=== PATIENT | male | born 1955 | race Caucasian/White ===

== ENCOUNTER 2021-07-08 07:42 | Day surgery (SDC) | payer MEDICARE, MEDICAID ==
[~2021-07-08 07:42] MED LIST: propofoL 50 ML ONE
[2021-07-08] MEDS ORDERED: fentaNYL 100 MCG/2 ML SDV ONE (08:30)
[2021-07-08] MEDS ORDERED: Lactated Ringers 1,000 ML IV SCH ×2 (08:30→10:00)
--- NOTE | 2021-07-08 09:26 | PCM.PREANE ---
Preanesthetic Assessment - Procedure Proposed Procedure: Colonoscopy - Anesthesia/Transfusion/Family Hx Anesthesia History: Prior Anesthesia Without Reaction Family History of Anesthesia Reaction: No Transfusion History: Prior Transfusion Without Reaction - Review of Systems General: No Symptoms Pulmonary: Wheezing (Smokes 1.5 PPD, used to smoke 3 PPD. COPD, no O2, uses MDI daily) Cardiovascular: No Symptoms (HTN, HLD) Gastrointestinal: No Symptoms Neurological: No Symptoms (H?O seizures as a child, resolved) Other: Reports: Diabetes (DM on metformin and Jardiance), Anxiety - Physical Assessment NPO Status Date: 07/06/21 NPO Status Time: 20:00 Height: 5 ft 10 in Weight: 117.027 kg (Obesity) ASA Class: 3 Mental Status: Alert & Oriented x3 Airway Class: Mallampati = 2 Dentition: Reports: Broken Tooth/Teeth, Missing Tooth/Teeth (No dentures) Thyro-Mental Finger Breadths: 3 Mouth Opening Finger Breadths: 3 ROM/Head Extension: Full Lungs: Clear to Auscultation, Normal Respiratory Effort Cardiovascular: Regular Rate, Regular Rhythm - Lab Values: Laboratory Last Values SARS-CoV-2 RNA (ÓSCAR) NEGATIVE (NEGATIVE) 07/08/21 06:50 - Allergies Allergies/Adverse Reactions: Allergies Allergy/AdvReac Type Severity Reaction Status Date / Time strawberry Allergy Hives Verified 07/04/21 14:12 - Acknowledgements Anesthesia Type Planned: General Anesthesia Pt an Appropriate Candidate for the Planned Anesthesia: Yes Alternatives and Risks of Anesthesia Discussed w Pt/Guardian: Yes Pt/Guardian Understands and Agrees with Anesthesia Plan: Yes PreAnesthesia Questionnaire HEENT History: Reports: Other (See Below) Other HEENT History: wears glasses Cardiovascular History: Reports: High Cholesterol, Hypertension Respiratory History: Reports: COPD, Sleep Apnea, Other (See Below) Other Respiratory History: does not use CPAP, states was told once he had lung cancer then was told by another doctor that he did not have cancer, has smoked cigarettes since he was "5 years old" Gastrointestinal History: Reports: GERD Genitourinary History: Reports: BPH Musculoskeletal History: Reports: Arthritis, Fracture Other Musculoskeletal History: hx fx ribs and fingers Neurological History: Reports: Other (See Below) Other Neuro History: states he had a undiagnosed stroke in 2010, staes he had left sided weakness and slurred speech, states he did not go to the doctor Psychiatric History: Reports: Anxiety, Depression Endocrine/Metabolic History: Reports: Diabetes, Type II, Obesity/BMI 30+ Hematologic History: Reports: Blood Transfusion(s) Other Hematologic History: states had a transfusion as a infant Immunologic History: Reports: None Oncologic (Cancer) History: Reports: None Dermatologic History: Reports: None - Past Surgical History Head Surgeries/Procedures: Reports: None HEENT Surgical History: Reports: None Cardiovascular Surgical History: Reports: None Respiratory Surgical History: Reports: Lung Biopsies, Other (See Below) Other Respiratory Surgeries/Procedures: states has had a lung bx, and what he describes as a possible bronchoscopy GI Surgical History: Reports: Colonoscopy, EGD Male Surgical History: Reports: None Endocrine Surgical History: Reports: None Neurological Surgical History: Reports: None Musculoskeletal Surgical History: Reports: Other (See Below) Other Musculoskeletal Surgeries/Procedures:: hx knee surgery Oncologic Surgical History: Reports: None Dermatological Surgical History: Reports: None - SUBSTANCE USE Tobacco Use Status *Q: Current Every Day Tobacco User Tobacco Use Within Last Twelve Months: Cigarettes - HOME MEDS Home Medications: Home Meds Aspirin [Adult Aspirin Regimen] 81 mg PO DAILY 07/04/21 [History] ClonazePAM [KlonoPIN] 0.5 mg PO BID PRN 07/04/21 [History] Diclofenac Sodium 75 mg PO BID 07/04/21 [History] Empagliflozin [Jardiance] 25 mg PO DAILY 07/04/21 [History] Esomeprazole Magnesium [Nexium 24Hr] 10 mg PO DAILY 07/04/21 [History] Fluticasone Propion/Salmeterol [Fluticasone-Salmeterol 250-50] 1 puff INH BID PRN 07/04/21 [History] Glimepiride 2 mg PO DAILY 07/04/21 [History] Rosuvastatin Calcium 20 mg PO DAILY 07/04/21 [History] Semaglutide [Rybelsus] 3 mg PO DAILY 07/04/21 [History] Sertraline HCl 100 mg PO DAILY 07/04/21 [History] Tamsulosin HCl [Flomax] 0.4 mg PO BEDTIME 07/04/21 [History] amLODIPine Besylate [Amlodipine Besylate] 10 mg PO DAILY 07/04/21 [History] lisinopriL [Lisinopril] 10 mg PO DAILY 07/04/21 [History] metFORMIN HCl [Metformin HCl] 1,000 mg PO BID 07/04/21 [History] traZODone HCl [Trazodone HCl] 100 mg PO BEDTIME PRN 07/04/21 [History] - CURRENT (IN HOUSE) MEDS Current Meds: Current Medications Lactated Ringer's (Ringers, Lactated) 1,000 mls @ 125 mls/hr IV ASDIRECTED JOSE L Discontinued Medications Fentanyl (Fentanyl 100 Mcg/2 Ml Sdv) Confirm Administered Dose 100 mcg .ROUTE .STK-MED ONE Stop: 07/08/21 08:31 Propofol (Diprivan 50 Ml) Confirm Administered Dose 50 mls @ as directed .ROUTE .STK-MED ONE Stop: 07/08/21 07:21 Lidocaine HCl (Lidocaine 1% 5 Ml Sdv) Confirm Administered Dose 5 ml .ROUTE .STK-MED ONE Stop: 07/08/21 08:31
--- NOTE | 2021-07-08 10:00 | PCM.OPNOTE ---
- General Post-Op/Procedure Note Date of Surgery/Procedure: 07/08/21 Operative Procedure(s): Colonoscopy Pre Op Diagnosis: Personal history of colon polyps Post-Op Diagnosis: Sigmoid diverticulosis Anesthesia Technique: MAC (ASA III) Primary Surgeon: Darren Wilde Condition: Good Free Text/Narrative:: DICTATION [id number] CPT CODE 44961
--- NOTE | 2021-07-08 10:08 | PCM.POSTAN ---
POST ANESTHESIA ASSESSMENT - MENTAL STATUS Mental Status: Alert, Oriented - VITAL SIGNS Vital Signs: Last Vital Signs Temp 98.1 F 07/08/21 08:55 Pulse 71 07/08/21 10:07 Resp 16 07/08/21 10:07 BP 104/61 07/08/21 10:07 Pulse Ox 94 L 07/08/21 10:07 - RESPIRATORY Respiratory Status: Respiratory Rate WNL, Airway Patent, O2 Saturation Stable - CARDIOVASCULAR CV Status: Pulse Rate WNL, Blood Pressure Stable - GASTROINTESTINAL GI Status: No Symptoms - PAIN Pain Score: 0 - POST OP HYDRATION Hydration Status: Adequate & Stable
--- NOTE | 2021-07-08 10:10 | PCM48HPAN ---
Post Anesthesia Note - EVALUATION WITHIN 48HRS OF ANESTHETIC Vital Signs in Normal Range: Yes Patient Participated in Evaluation: Yes Respiratory Function Stable: Yes Airway Patent: Yes Cardiovascular Function Stable: Yes Hydration Status Stable: Yes Pain Control Satisfactory: Yes Nausea and Vomiting Control Satisfactory: Yes Mental Status Recovered: Yes Vital Signs: Last Vital Signs Temp 98.1 F 07/08/21 08:55 Pulse 71 07/08/21 10:07 Resp 16 07/08/21 10:07 BP 104/61 07/08/21 10:07 Pulse Ox 94 L 07/08/21 10:07 - COMMENTS/OBSERVATIONS Free Text/Narrative:: Pt doing well post-op. VSS. No apparent anesthetic complications. Dr. Pablo Hernandez
--- NOTE | 2021-07-08 14:58 | OR ---
SURGEON: Darren Wilde M.D. DATE OF PROCEDURE: 07/08/2021 PROCEDURE PERFORMED: Colonoscopy. PRIMARY SURGEON: Darren Wilde MD. ANESTHESIA: MAC. ASA CLASSIFICATION: 3. PREOPERATIVE DIAGNOSIS: Personal history of colon polyps. POSTOPERATIVE DIAGNOSIS: Sigmoid diverticulosis. DESCRIPTION OF PROCEDURE: The patient was taken to the endoscopy room and positioned on the endoscopy table in the left lateral decubitus position. Time-out was called for appropriate identification of the patient and procedure. Monitored anesthesia care was provided. The colonoscope was inserted into the rectum and advanced with minimal difficulty to the cecum. The cecum was identified by internal landmarks and external pressure. The appendiceal orifice and ileocecal valve were both visualized. The colonoscope was retroflexed to visualize the ascending colon from below, then straightened and slowly withdrawn. The cecum, ascending colon, hepatic flexure, transverse colon, splenic flexure, and descending colon show no tumors, polyps, diverticula, or angiodysplastic changes. Sigmoid colon itself demonstrated moderate diverticular disease. No stricture, spasm, or bleeding was noted. No polyps were encountered. The colonoscope was withdrawn to the rectum and retroflexed to visualize the anal orifice from above. No tumors, polyps, or acute hemorrhoidal changes were noted. The colonoscope was then straightened, the rectum aspirated, and the colonoscope removed. The patient tolerated the procedure well and was taken to recovery room in satisfactory condition. ELIF / AMARILIS /[id number]
== END 2021-07-08 10:40 | disposition home or self-care (01) ==
LOC: MW.SDS 07:42
PROVIDERS: ATTEND Surgery
DX: K57.30 Diverticulosis of large intestine without perforation or abscess without bleeding (principal); J44.9 Chronic obstructive pulmonary disease, unspecified; E78.00 Pure hypercholesterolemia, unspecified; E11.9 Type 2 diabetes mellitus without complications; I10 Essential (primary) hypertension; Z20.822 Contact with and (suspected) exposure to COVID-19; Z79.82 Long term (current) use of aspirin; Z79.84 Long term (current) use of oral hypoglycemic drugs; Z79.899 Other long term (current) drug therapy; Z86.010 Personal history of colon polyps; F17.210 Nicotine dependence, cigarettes, uncomplicated
CPT/HCPCS: 82947; J2704; J3010; J7120; U0002